=== PATIENT | female | born 1995 | race African-American/Black ===

== ENCOUNTER 2020-03-13 15:36 | Outpatient (REF) | payer OTHER, SELFPAY ==
--- NOTE | 2020-03-13 15:53 | ECG_ITS ---
Test Reason : R/O QTC PROLONGATION Blood Pressure : / mmHG Vent. Rate : 103 BPM Atrial Rate : 103 BPM P-R Int : 168 ms QRS Dur : 068 ms QT Int : 326 ms P-R-T Axes : 048 029 043 degrees QTc Int : 427 ms Sinus tachycardia Otherwise normal ECG No previous ECGs available Referred By: Giselle Mccarthy Electronically Signed By:TONJA SHETTY
[2020-03-13 16:38] LABS: MANUAL DIFF FLAG NO
[2020-03-13 16:41] LABS: Basophils Absolute Auto 0.1 X10*3/uL (0.0-0.2); Basophils Percent Auto 0.6 % (0-2); Eosinophils Percent Auto 0.4 % (0-4); Hematocrit 38.4 % (37-47); Hemoglobin 12.7 g/dl (12.0-16.0); Imm Gran Abs Auto 0.03 X10*3/uL (0.00-0.03); Imm Gran Pct Auto 0.3 % (0.0-0.4); Lymphocytes Absolute Auto 2.2 X10*3/uL (1.2-4.9); Lymphocytes Percent Auto 22.3 % (20-40); Mean Corpuscular HGB Conc 33.1 g/dl (31.0-35.0); Mean Corpuscular Hemoglobin 28.5 pg (27.0-33.0); Mean Corpuscular Volume 86.1 fL (80-98); Mean Platelet Volume 10.6 fL (9.4-12.3); Monocytes Absolute Auto 0.8 X10*3/uL (0.1-1.2); Monocytes Percent Auto 8.1 % (2-11); Neutrophils Absolute Auto 6.7 X10*3/uL (2.0-8.3); Neutrophils Percent Auto 68.3 % (45-73); Platelet Count 434 X10*3/uL (160-400); Red Blood Count 4.46 X10*6/uL (4.20-5.50); Red Cell Distribution Width 12.8 % (11.0-16.0); White Blood Count 9.8 X10*3/uL (4.8-10.8)
[2020-03-13 16:52] LABS: Estimated Average Glucose 103 mg/dL; Hemoglobin A1c % 5.2 %
[2020-03-13 17:06] LABS: Alanine Aminotransferase 8 U/L (0-31); Albumin Level 4.7 g/dL (3.5-5.0); Alkaline Phosphatase 87 U/L (39-117); Anion Gap 15 (12-20); Aspartate Amino Transferase 15 U/L (5-31); Bilirubin Total 0.4 mg/dL (0.0-1.0); Blood Urea Nitrogen 14 mg/dL (9-16); Calcium 10.2 mg/dL (8.4-10.2); Carbon Dioxide 24 mmol/L (22-29); Chloride 105 mmol/L (96-108); Cholesterol 185 mg/dL; Estimated Glomerular Filt Rate > 60; Glucose Random 83 mg/dL (60-115); HDL Cholesterol 56 mg/dL; Iron 57 mcg/dL (30-160); LDL Cholesterol Calculated 120 mg/dl; Magnesium 2.2 mg/dL (1.6-2.6); Percent Iron Saturation 17 % (15-50); Potassium 4.6 mmol/l (3.3-5.1); Sodium 139 mmol/L (135-145); Total Iron Binding Capacity 329 mcg/dL (228-428); Total Protein 8.2 g/dL (6.5-8.0); Triglycerides 48 mg/dL; Unsaturated Iron Binding 272 ug/dL
[2020-03-13 17:31] LABS: Ferritin 90 ng/mL (10-122); Free T4 (Free Thyroxine) 1.04 ng/dL (0.71-1.85); Thyroid Stimulating Hormone 2.06 mIU/mL (0.32-4.0); Vitamin D 25-OH Total 7.3 ng/mL (>30)
[2020-03-13 17:40] LABS: Folate 8.7 ng/mL (> or = 4.0); Vitamin B12 > 2000 pg/mL (200-900)
== END 2020-03-13 15:37 | disposition home or self-care (01) ==
LOC: HO.LAB 15:36
PROVIDERS: Visit Provider Clinical Nurse Specialist Psychiatric/Mental Health, Adult
DX: F31.81 Bipolar II disorder (principal); R07.9 Chest pain, unspecified
CPT/HCPCS: 36415; 80053; 80061; 82306; 82607; 82728; 82746; 83036; 83540; 83735; 84439; 84443; 85025; 93005; 93010

== ENCOUNTER 2020-04-02 11:45 | Outpatient (RCR) | payer OTHER, SELFPAY ==
--- NOTE | 2020-03-13 14:32 | P.PNPSP_ITS ---
Subjective Subjective Date of Service: 03/13/20 Reason For Visit: F33.2 Interim History: Vidhi reports feeling overwhelmed with medication choices. Today we resent information regarding choices. Discussion of mood stabilizers. Therapist has reached out to Sherin Mccarty [facility] stating pt is reporting not feeling she is functioning well, with passive SI, but presents better that she functions. ADL's are impaired, home care is impaired per therapist. Pt reports she feels labile, forgetful and feels triggered at times. Cites examples as being late for work daily for six months, and locks her keys in her car several times per week. Reports some increase in lability since initiation of Ritalin on 03/05/20. Medication Compliance: Yes Side effects from medications: No Attending Groups: Yes Mental Status Exam Mental Status Exam Patient Appearance: Appropriate Patient Orientation: Person, Place, Time and Situation Level of Consciousness: Awake and Appropriate Patient Behavior: Appropriate Mood Description: Withdrawn, Constricted, Depressed, Labile (per pt report), Angry and Sad Affect Description: Flat and Sad Patient Cognition Impaired: No Ability to Follow Directions: Excellent Speech Pattern: Clear Memory Description: Intact Hallucinations: None Delusions: Not Present Thought Process: Intact Thought Content: positive for Intact and positive for Suicidal Ideation (passive, without plan or intent, however team reports pt discusses getting affairs in order.) Depressive Symptoms: Diff. Making Decisions, Increased Irritability, Loss of Int. in Activity, Feelings of Worthlessness, Hopelessness, Unhappiness, Thoughts of /Suicide and Low Self Esteem Judgement: Good Diagnostics Labs Labs: CMP WNL 03/13/20 T. Protein 8.2 (6.5-8) Triglyceride 48, Chol 185, LDL 120, HDL 56 Vit D 7.3 TSH, FT4 WNL B12, Folate >2000, 8.7 CBCD WNL Assessment & Plan Patient educated on: diagnosis, medication risk/benefits and therapeutic strategies Informed Consent: understands Reason for contiued partial hosp. stay Substantial Risk for: harm to self, inability to function and rapid decompensation Certification I certify that partial hospital treatment is medically necessary due to the symptoms and problems resulting from the patient's mental illness and the failure to treat the patient at the partial hospital level of care would likely result in the patient requiring inpatient psychiatric care which could not be prevented at a less intensive level of care. Greater than 50% of the session was spent on counseling and/or coordination of care Discharge Plan Discharge Attending provider: Brayan Fiore Additional Instructions: Will begin [place] 300 mg bedtime and Lamictal 25 mg daily. Discussed Lamictal titration and using [place] during titration to offer stability. Pt agrees and will initiate. Medications: New lithium carbonate 300 mg capsule 300 mg PO BEDTIME Qty: 5 RF: 0 lamotrigine [Lamictal] 25 mg tablet 25 mg PO DAILY 14 Days Qty: 14 RF: 0 No Action Wellbutrin XL 300 mg 300 mg PO DAILY RF: 0 methylphenidate HCl 18 mg tablet extended release 24hr 1 tab PO QAM RF: 0
--- NOTE | 2020-03-17 13:04 | PC.NURSE ---
I called and left a message for pt's therapist, Ayaka Flynn at [facility] ([phone], [id number]). Patient has declined to open up in groups, and has shared that she is only here to keep her medical leave from work and would rather not be in [facility]. She has also shared that she has passive suicidal thoughts with no plan or intent I informed Ms. Flynn about this, and asked if she has thoughts. I asked her to pls call.
--- NOTE | 2020-03-17 15:33 | P.PNPSP_ITS ---
Subjective Subjective Date of Service: 03/17/20 Reason For Visit: F33.2 Interim History: Vidhi reports she has not picked up [place]/Lamictal yet, however plans to do so today. Reviewed lab results which she completed on 03/13. Medication Compliance: Yes Side effects from medications: No Attending Groups: Yes Mental Status Exam Mental Status Exam Patient Orientation: Person, Place, Time and Situation Level of Consciousness: Awake and Alert Patient Behavior: Appropriate and Talkative Mood Description: Depressed and Flat Affect Description: Calm and Depressed Patient Cognition Impaired: No Ability to Follow Directions: Excellent Speech Pattern: Clear Memory Description: Intact Hallucinations: None Delusions: Not Present Thought Process: Intact Thought Content: positive for Intact, positive for [place] and positive for Suicidal Ideation (passive today, no intent) Depressive Symptoms: Thoughts of /Suicide (passive SI, denies plan or intent today) Judgement: Good Assessment & Plan Patient educated on: medication risk/benefits and therapeutic strategies Informed Consent: understands and further education needed Reason for contiued partial hosp. stay Substantial Risk for: harm to self, inability to function and rapid decompensation Certification I certify that partial hospital treatment is medically necessary due to the symptoms and problems resulting from the patient's mental illness and the failure to treat the patient at the partial hospital level of care would likely result in the patient requiring inpatient psychiatric care which could not be prevented at a less intensive level of care. Greater than 50% of the session was spent on counseling and/or coordination of care Discharge Plan Discharge Attending provider: Brayan Fiore Additional Instructions: Will begin [place] 300 mg bedtime and Lamictal 25 mg daily. Discussed Lamictal titration and using [place] during titration to offer stability. Pt agrees, did not initiate on 03/13/20. 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 Review of low Vit D. Will begin Cholecalciferol D3-2000, 50 mcg daily. Medications: New lithium carbonate 300 mg capsule 300 mg PO BEDTIME Qty: 5 RF: 0 lamotrigine [Lamictal] 25 mg tablet 25 mg PO DAILY 14 Days Qty: 14 RF: 0 cholecalciferol (vitamin D3) [D3-2000] 50 mcg (2,000 unit) capsule 50 mcg PO DAILY Qty: 30 RF: 2 No Action Wellbutrin XL 300 mg 300 mg PO DAILY RF: 0 methylphenidate HCl 18 mg tablet extended release 24hr 1 tab PO QA RF: 0
--- NOTE | 2020-03-18 11:03 | PC.NURSE ---
I called and left a message for patient. She did not show for treatment today, and did not call. I asked her to please call, explained that we are worried about ehr, and that we will call her emergency contact if we dont hear from her. I also added that we might ultimately call for a wellness check if we don't hear from her and cannot get a hold of her emergency contact.
--- NOTE | 2020-03-18 11:05 | PC.NURSE ---
I attempted to call pt's mother, Nata, her emergency contact. I called several times and the phone rang two or three times then went blank. I then Spoke to Maria Luz Luque, melt house supervisor, who called Nata and was able to leave a message.
--- NOTE | 2020-03-18 11:18 | PC.NURSE ---
I received a call from pt and spoke with her. She said she is fine and sounded bright in affect. She said she declined to attend program today because she is still waiting to talk with her therapist about whether or not they can find another option. She said I don't feel the program is for me. I don't participate at all and it's a waste of everyone's time for me to show up. But I'm not suicidal and I'm okay . She said she might or might not attend tomorrow, as she is still waiting to talk to her therapist. I asked her to call if she will not be attending tomorrow.
--- NOTE | 2020-03-26 11:53 | PC.NURSE ---
Checked in with patient today regarding the need for a PCP. Patient stated she is working with her therapist on obtaining a PCP and did not want staff assistance at this time.
--- NOTE | 2020-03-26 16:04 | P.PNPSP_ITS ---
Subjective Subjective Date of Service: 03/26/20 Reason For Visit: F33.2 Interim History: Vidhi reports positive result with addition of Lamictal. States she noticed a decrease in depression and SI as symptoms were not as active as they had been. She took [place] a few times, but did stop it. Sleep continues to be difficult. Reports she is not tired and is going to bed around 2-3 am and not sleeping well. Discussed medication timing and is attempting to make a schedule which works with her new work schedule. Discussed work and feeling it is a major contributing factor to depressive symptoms. Discussed using some short term disability time and possibly making some changes. She aguila l check into this with her employer as she is unsure the job is a proper fit for her at this time. Offered our assist as needed. Discussed Lamictal, feeling ready to titrate (initiated on 03/13/20). Medication Compliance: Yes Side effects from medications: No Attending Groups: Yes Review of Systems Review of Systems Yes all other systems are reviewed and are negative Psychiatric: Reports abnormal sleep pattern, Reports anxiety, Reports depression and Reports mood swings Mental Status Exam Mental Status Exam Patient Orientation: Person, Place, Time and Situation Level of Consciousness: Awake, Appropriate and Alert Patient Behavior: Appropriate Mood Description: Calm and Flat Affect Description: Calm and Flat Patient Cognition Impaired: No Ability to Follow Directions: Excellent Speech Pattern: Clear and Appropriate Memory Description: Intact Hallucinations: None Delusions: Not Present Thought Process: Intact Thought Content: positive for Intact Depressive Symptoms: Insomnia (latency, LEW), Difficulty Sleeping, Unhappiness and Low Self Esteem Judgement: Good Assessment & Plan Patient educated on: medication risk/benefits and therapeutic strategies Informed Consent: understands and further education needed Reason for contiued partial hosp. stay Substantial Risk for: harm to self, inability to function and rapid decompensation Certification I certify that partial hospital treatment is medically necessary due to the symptoms and problems resulting from the patient's mental illness and the failure to treat the patient at the partial hospital level of care would likely result in the patient requiring inpatient psychiatric care which could not be prevented at a less intensive level of care. Greater than 50% of the session was spent on counseling and/or coordination of care Discharge Plan Discharge Attending provider: Brayan Fiore Additional Instructions: Discontinue [place]-not using Increase Lamictal to 50 mg daily Vidhi will discuss short-term disability with her employer and will let us danyell garcia if our assistance is required in application. Medications: New cholecalciferol (vitamin D3) [D3-2000] 50 mcg (2,000 unit) capsule 50 mcg PO DAILY Qty: 30 RF: 2 lamotrigine [Lamictal] 25 mg tablet 50 mg PO DAILY 14 Days Qty: 28 RF: 0 No Action Wellbutrin XL 300 mg 300 mg PO DAILY RF: 0 methylphenidate HCl 18 mg tablet extended release 24hr 1 tab PO QAM RF: 0
--- NOTE | 2020-03-27 13:28 | PC.NURSE ---
LM for pt's therapist, Ayaka Flynn, on her cell phone, in regard to progress made in treatment.
--- NOTE | 2020-03-30 11:36 | PC.NURSE ---
I called and left a message for [facility] in [place] , at pt's request. I asked for a call back to refer pt for services.
--- NOTE | 2020-03-30 11:53 | PC.NURSE ---
I received a call back from [facility] re[facility], and put in a referral for services at pt's request. Staff said pt's info is in the computer, and will be sent to Arlene Sumner, the community support associate, who will then assign the case to a counselor. She said the counselor should be calling the patient in a few days.
--- NOTE | 2020-04-01 11:58 | HO.PHPPROGNO ---
Subjective Subjective Date of Service: 04/01/20 Reason For Visit: F33.2 Interim History: Vidhi has not increased Lamictal yet. Discussed titration. She will begin 50 mg today. Pt has decided to ask for extended absence from work to focus on her health. She has contacted her third green party insurer, Megha Mendez of [facility]. Megha left information writer a message-she needs a confirmed date of discharge and a fax number to send a DEEPAK to obtain medical records. DEEPAK emailed to pt. She will return this to PHP team. Pt reports feeling this is the correct decision at this time for her health and she has been supported by the group. She discussed fear that if she does not take this time to take care of her depressive sx she may not survive. Pt also has a [facility] counter caser however since pandemic her case has moved slowly. Mackenzie Nieto [facility] will make contact with [facility] to assess where pt is in their process. OP Psychopharmacolgy appt ~30 days. Lamictal refill sent. Medication Compliance: Yes Side effects from medications: No Attending Groups: Yes Review of Systems Review of Systems Yes all other systems are reviewed and are negative Psychiatric: Reports anxiety, Reports depression, Reports difficulty concentrating, Reports hopelessness, Reports irritability, Reports anhedonia, Reports mood swings and Reports suicidal ideation (denies today, feels she is moving in a forward direction) Mental Status Exam Mental Status Exam Patient Orientation: Person, Place, Time and Situation Level of Consciousness: Awake and Appropriate Patient Behavior: Appropriate, Talkative and Cooperative Mood Description: Calm and Depressed Affect Description: Depressed Patient Cognition Impaired: No Ability to Follow Directions: Excellent Speech Pattern: Clear Memory Description: Intact Hallucinations: None Delusions: Not Present Thought Process: Intact Thought Content: positive for Intact Depressive Symptoms: Hopelessness, Unhappiness and Difficulty Concentrating Judgement: Good Assessment & Plan Patient educated on: medication risk/benefits Informed Consent: understands and further education needed Reason for contiued partial hosp. stay Substantial Risk for: harm to self, inability to function and rapid decompensation Certification I certify that partial hospital treatment is medically necessary due to the symptoms and problems resulting from the patient's mental illness and the failure to treat the patient at the partial hospital level of care would likely result in the patient requiring inpatient psychiatric care which could not be prevented at a less intensive level of care. 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
--- NOTE | 2020-04-02 15:06 | PC.NURSE ---
I called and LM for Ayaka Flynn with discharge information.
== END 2020-04-02 15:25 | disposition home or self-care (01) ==
LOC: HO.PHPA 11:45
PROVIDERS: Visit Provider Psychiatry & Neurology Psychiatry
DX: F33.2 Major depressive disorder, recurrent severe without psychotic features (principal)
CPT/HCPCS: 90853; 99213; 99214